=== PATIENT | female | born 1970 | race Caucasian/White ===

== ENCOUNTER → 2020-08-31 | Outpatient (CLI) | payer BC ==
[2020-08-31 13:56] LABS: BASOPHILS % (AUTO) 1 % (0-10); EOSINOPHILS # (AUTO) 0.2 10^3/uL (0.0-0.3); EOSINOPHILS % (AUTO) 3 % (0-10); HEMATOCRIT 45 % (35-52); HEMOGLOBIN 14.5 g/dL (11.5-16.0); LYMPHOCYTES # (AUTO) 1.9 10^3/uL (1.0-4.0); LYMPHOCYTES % (AUTO) 27 % (12-44); MEAN CORPUSCULAR HEMOGLOBIN 32 pg (25-34); MEAN CORPUSCULAR HGB CONC 32 g/dL (32-36); MEAN CORPUSCULAR VOLUME 100 fL (80-99); MEAN PLATELET VOLUME 9.8 fL (9.0-12.2); MONOCYTES # (AUTO) 0.4 10^3/uL (0.0-1.0); MONOCYTES % (AUTO) 5 % (0-12); NEUTROPHILS # (AUTO) 4.4 10^3/uL (1.8-7.8); NEUTROPHILS % (AUTO) 64 % (42-75); PLATELET COUNT 296 10^3/uL (130-400); WHITE BLOOD COUNT 6.8 10^3/uL (4.3-11.0)
[2020-08-31 14:14] LABS: ALANINE AMINOTRANSFERASE 28 U/L (0-55); ALBUMIN 4.4 GM/DL (3.2-4.5); ALKALINE PHOSPHATASE 69 U/L (40-136); BILIRUBIN,TOTAL 0.4 MG/DL (0.1-1.0); BUN/CREATININE RATIO 15; CALCIUM 9.7 MG/DL (8.5-10.1); CARBON DIOXIDE 23 MMOL/L (21-32); CHLORIDE 105 MMOL/L (98-107); CREATININE SERUM 0.97 MG/DL (0.60-1.30); GFR ESTIMATED > 60; GLUCOSE 84 MG/DL (70-105); POTASSIUM 3.8 MMOL/L (3.6-5.0); SODIUM 142 MMOL/L (135-145); TOTAL PROTEIN 7.4 GM/DL (6.4-8.2)
--- NOTE | 2020-08-31 15:02 | Diagnostic Imaging Report ---
INDICATION: Rectal carcinoma. TECHNIQUE: Serum blood glucose level at the time of injection is 90 mg/dL. Patient was administered 15.5 mCi F-18 FDG intravenously in the left antecubital location and PET imaging was performed from the top of skull to mid thighs. Noncontrast CT was performed for attenuation correction and anatomic correlation. COMPARISON: No prior imaging is available for comparison. FINDINGS: There is symmetric activity throughout the brain. Soft tissues of the neck are unremarkable. There is a hypermetabolic mass identified in the anterior mediastinum prevascular space adjacent to the aortic arch. Soft tissue mass measures 3.7 cm. SUV max is approximately 14. No other mediastinal or hilar hypermetabolic foci are seen. There is calcified lymph node in left hilum from prior granulomatous exposure. There is a slightly irregular density in the right lung apex measuring 9 mm. This shows very mild low level uptake. There are numerous nodules within both lungs. Subcentimeter nodules in left upper lobe are noted measuring up to 9 mm. There is a tiny cavitary lesion in the left upper lobe measuring 5 mm. A cavitary mass in superior segment left lower lobe measures 15 mm. Tiny cavitary lesion in the posterolateral right lower lobe measures 8 mm. None of these appear to be hypermetabolic. Abdomen and pelvis demonstrate physiologic activity throughout the gastrointestinal and genitourinary tracts. There are postsurgical changes noted. Left lower quadrant ostomy is present. IMPRESSION: 1. Hypermetabolic mass in the prevascular space of the superior mediastinum. 2. Numerous pulmonary nodules bilaterally, several of which appear to be cavitary. This could be on infectious/inflammatory or metastatic basis. Pulmonary lesions do not show significant uptake of FDG. 3. No significant abnormality in the abdomen or pelvis. Dictated by: Dictated on workstation # [id number]
== END ==
LOC: RAD 11:45
PROVIDERS: ATTEND Internal Medicine Hematology & Oncology
DX: C20 Malignant neoplasm of rectum (principal); J98.59 Other diseases of mediastinum, not elsewhere classified; R91.8 Other nonspecific abnormal finding of lung field
CPT/HCPCS: 78815; 80053; 82378; 85025; A9552; 36415